=== PATIENT | male | born 1940 | race Asian ===

== ENCOUNTER 2016-06-26 17:32 | Emergency (ER) | payer OTHER, BC ==
[~2016-06-26] VITALS: Ht 170.2 cm; Wt 64.0 kg
[2016-06-26 17:53] VITALS: BP 138/85; PULSE 88; RESP 16; TEMP 97.4; O2SAT 97
--- NOTE | 2016-06-26 17:57 | NUR ---
Patient triaged and placed in waiting room. VSS and patient appears in no acute distress at this time. Accompanied by friend, awaiting available bed, and MD notified of need for MSE.
--- NOTE | 2016-06-26 18:19 | NUR ---
Patient to ER bed 06 to gown for evaluation. Side rails up. Report given to DIEGO Sanchez.
[2016-06-26] MEDS ORDERED: BACITRACIN 1 GM OINT TP ONE (18:30)
[2016-06-26] MEDS ORDERED: ACETAMINOPHEN 325 MG TABLET PO ONE (18:30)
[2016-06-26] MEDS ORDERED: DIPH-TET-PERTUS Vaccine 0.5 ML VIAL (ADACEL) IM ONE (18:30)
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
[2016-06-26 19:15] VITALS: BP 145/88; PULSE 85; RESP 16; TEMP 98; O2SAT 95
--- NOTE | 2016-06-26 19:15 | NUR ---
Patient given written and verbal discharge instructions and verbalizes understanding. ER MD discussed with patient the results and treatment provided. Patient in stable condition. ID arm band removed. Rx of Bacitracin and tylenol given. Patient educated on pain management and to follow up with PMD. Pain Scale 0/10. Opportunity for questions provided and answered.
== END 2016-06-26 19:15 | disposition home or self-care (01) ==
LOC: SED 17:32
DX: S01.01XA Laceration without foreign body of scalp, initial encounter (principal); S80.211A Abrasion, right knee, initial encounter; V19.3XXA Pedal cyclist (driver) (passenger) injured in unspecified nontraffic accident, initial encounter; Y93.I9 Activity, other involving external motion; Y92.481 Parking lot as the place of occurrence of the external cause; Y99.8 Other external cause status
CPT/HCPCS: 70450-TC; 90715; 99284